=== PATIENT | male | born 1965 | race Two or more races ===

== ENCOUNTER 2023-04-07 20:41 | Emergency (ER) | payer MEDICARE, MEDICAID ==
[~2023-04-07] VITALS: Ht 170.2 cm; Wt 91.0 kg
[2023-04-07 21:43] VITALS: TEMP 98
[2023-04-07] MEDS ORDERED: OXYC10TA48 PO (22:04)
[2023-04-07] MEDS ORDERED: DOCU-412 PO (22:04)
[2023-04-07] MEDS ORDERED: LORA10TA7 PO (22:04)
[2023-04-07] MEDS ORDERED: CEFT2PIG2 IV (22:04)
[2023-04-07] MEDS ORDERED: THIA100T80 PO (22:04)
[2023-04-07] MEDS ORDERED: FOLI-130 PO (22:04)
[2023-04-07] MEDS ORDERED: LORA-1000 PO (22:04)
[2023-04-07] MEDS ORDERED: MULT-1366 PO (22:04)
[2023-04-07] MEDS ORDERED: APIX5TAB PO (22:04)
[2023-04-07] MEDS ORDERED: LACT1TAB14 PO (22:04)
[2023-04-07] MEDS ORDERED: INSU100V52 SQ (22:04)
[2023-04-07] MEDS ORDERED: SODIUM CHLORIDE 0.9% 1,000 ML IV ONE (22:15)
[2023-04-07 23:05] LABS: BASOPHILS % (AUTO) 0.5 % (0.0-2.0); EOSINOPHILS % (AUTO) 2.9 % (1.0-6.0); HEMATOCRIT 26.9 % (41-53); HEMOGLOBIN 9.4 g/dL (13.5-17.5); LYMPHOCYTES % (AUTO) 14.2 % (22.0-44.0); MEAN CORPUSCULAR HGB CONC 34.8 G/dL (31.0-37.0); MEAN CORPUSCULAR VOLUME 92 fL (80-100); MONOCYTES # (AUTO) 0.8 K/uL (0.1-1.0); MONOCYTES % (AUTO) 10.9 % (2.0-9.0); NEUTROPHILS # (AUTO) 5.1 K/uL (1.8-7.7); NEUTROPHILS % (AUTO) 71.5 % (40.0-70.0); PLATELET COUNT (AUTO) 228 K/uL (150-450); RED BLOOD CELL COUNT(AUTO) 2.92 MIL/uL (4.50-5.90); RED CELL DISTRIBUTION WIDTH 15.3 % (11.5-14.5); WHITE BLOOD COUNT (AUTO) 7.1 K/uL (4.5-11.0)
[2023-04-07 23:21] LABS: CREATININE 2.11 mg/dL (0.60-1.30); POTASSIUM 5.3 mmol/L (3.5-5.1)
[2023-04-07 23:22] LABS: TROPONIN I-HIGH SENSITIVITY 10 ng/L (<76)
[2023-04-07 23:27] LABS: ALBUMIN 1.9 g/dL (3.4-5.0); BILIRUBIN,TOTAL 0.2 mg/dL (0.1-1.0); TOTAL PROTEIN, SERUM 6.9 g/dL (6.4-8.2)
[2023-04-07] MEDS ORDERED: INSULIN REGULAR, HUMAN 100 UNITS/ML IVP ONE (23:30)
[2023-04-08] MEDS ORDERED: HYDROmorphone HCL 2 MG/ML SYRINGE IVP ONE ×2 (01:15→02:00)
[2023-04-08 01:30] LABS: APPEARANCE,URINE HAZY (CLEAR); BILIRUBIN,URINE NEGATIVE (NEGATIVE); COLOR,URINE DARK BROWN (YELLOW); GLUCOSE, URINE (UA) 300-500 mg/dL (NEGATIVE); KETONES,URINE NEGATIVE (NEGATIVE); LEUKOCYTE ESTERASE ,URINE TRACE (NEGATIVE); NITRATE,URINE NEGATIVE (NEGATIVE); OCCULT BLOOD,URINE LARGE (NEGATIVE); PH,URINE 6.5 (5.0-8.0); PROTEIN,URINE 300-600,SEE CONFIRM mg/dL (NEGATIVE); SPECIFIC GRAVITIY, URINE 1.025 (1.003-1.030); UROBILINOGEN,URINE <=1.0 mg/dL (<=1.0)
[2023-04-08 01:31] LABS: SULFOSALICYLIC ACID,URINE 3+ (Negative)
[2023-04-08 01:33] LABS: RBC,URINE Full Field /HPF (0-2)
[2023-04-08 01:34] LABS: BACTERIA,URINE None Seen /HPF (None Seen)
[2023-04-08 02:10] VITALS: BP 129/77; PULSE 78; RESP 18
[2023-04-08] MEDS ORDERED: LIDOCAINE 2% 6 ML JELLY TP ONE (02:30)
== END 2023-04-08 04:32 | disposition left against medical advice (07) ==
LOC: EMS 20:44
DX: R33.9 Retention of urine, unspecified (principal); R31.9 Hematuria, unspecified; J44.9 Chronic obstructive pulmonary disease, unspecified; E11.9 Type 2 diabetes mellitus without complications; E78.00 Pure hypercholesterolemia, unspecified; Z96.649 Presence of unspecified artificial hip joint
CPT/HCPCS: 99285; 96374; 96361; 80053; 81001; 82962; 83690; 84484; 85025; 36415; 93005; 74176; 96375; 96376; J1815; J7030; J1170; Q9967; 81002